=== PATIENT | female | born 2000 | race Caucasian/White ===

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

== ENCOUNTER 2022-11-07 09:47 | Emergency (ER) | payer MEDICAID, SELFPAY ==
[2022-11-07 09:48] VITALS: BP 122/82; PULSE 85; RESP 18; O2SAT 100
--- NOTE | 2022-11-07 10:05 | W.ED.WOUNDLC ---
HPI - Wound/Laceration General: Chief Complaint: Wound/Laceration Stated Complaint: LEFT WRIST LACERATION Time Seen by Provider: 11/07/22 09:48 Source: patient Mode of arrival: ambulatory Limitations: no limitations History of Present Illness: 22-year-old female states that she was making stuff for Mother's Day dropped a knife and went to catch it and it stabbed her in her left wrist she does have a laceration roughly 3 cm to the left wrist no bleeding at this time she rates her pain a 3 out of 10 she has full range of motion of her right hand no weakness in her supervisor burling and joining. Denies any other injuries. Associated symptoms: Denies chills, fever(s), nausea or vomiting Review of Systems Const: Denies: fever(s), chills, body aches or change in appetite ENMT: Denies: throat pain or dental pain Card: Denies: chest pain Resp: Denies: dyspnea GI: Denies: abdominal pain, nausea, vomiting or diarrhea Musc: Denies: neck pain or back pain Skin/Breast: Denies: rash Neuro: Denies: headache(s) PFSH ED PFSH: Medical History Encounter for surveillance of Nexplanon subdermal contraceptive Family History Grandmother Hypertension paternal Heart disease paternal Social History Smoking and tobacco status: current every day smoker cigarettes Alcohol intake: never Substance/Drug Use: never Physical Exam Const: COMMON NORMALS: no acute distress and patient oriented x3 HENMT: COMMON NORMALS: normocephalic HEAD & SCALP: normocephalic Eye: COMMON NORMALS: conjunctivae normal CONJUNCTIVA: Yes conjunctivae normal Neck/C-Spine: COMMON NORMALS: supple Chest: COMMONS NORMALS: normal inspection of the chest Resp: COMMON NORMALS: normal respiratory effort Cardio: COMMON NORMALS: regular rate RATE: regular rate GI: COMMON NORMALS: Normal to inspection, nondistended, normoactive bowel sounds present Extremity: NARRATIVE EXTREMITY EXAM: 3 cm laceration to left wrist no tendon involvement no bleeding at this time distal pulses sensation intact she has full range of motion of her digits Neuro: COMMON NORMALS: patient oriented x3 Psych: COMMON NORMALS: mental status grossly normal Skin: COMMON NORMALS: no rashes or lesions noted GENERAL SKIN EXAM: no rashes or lesions noted Procedures Laceration Laceration 1: Site: upper extremity Side (If applicable): left Size (cm): 3 Description: linear Depth: simple, single layer Local Anesthetic: lidocaine 1% Amount of anesthesia used (mL): 8 Pre-repair: wound explored and irrigated extensively Skin layer closed with: nylon Size (cm): 5-0 Number of sutures: 4 Technique: simple, interrupted Course Vital Signs: Vital signs: Vital Signs Pulse Rate 85 11/07/22 09:48 Respiratory Rate 18 11/07/22 09:48 Blood Pressure 122/82 11/07/22 09:48 Pulse Oximetry 100 11/07/22 09:48 Oxygen Delivery Me thod Room Air 11/07/22 09:48 MDM - Wound/Laceration Medical Decision Making Patient presents with a laceration to her left wrist she has no signs of any tendon or nerve involvement. She has no bleeding at this time no sign of arterial injury I did repair the laceration with sutures she is to return in 10 to 14 days for removal Discharge Plan Discharge Patient Disposition: Home Clinical Impression: Laceration Condition: Stable Prescriptions: No Action norgestimate-ethinyl estradiol [Sprintec (28)] 0.25-35 mg-mcg tablet 1 tab PO DAILY Qty: 28 3RF Prilosec OTC 20 mg tablet,delayed release (DR/EC) 20 mg PO DAILY PRN acetaminophen 325 mg Tablet 650 mg PO Q6H PRN (Reason: Mild pain or temp > 100.4) Qty: 60 0RF Discharge Orders: Discharge ED (Routine); Ordered 11/07/22 Ordered By: Rey Dc Discharge Diet: Advance as tolerated Discharge Activity: Resume usual activity Patient Instructions: Care For Your Stitches (ED) Activity Restrictions/Additional Instructions: suture removal in 10-14 days Coding Level of Care Code ED Microarray Specialist for Rei Poole
[2022-11-07] MEDS: tetanus-dipt-pertussis 0.5 mL SDV IM (10:07)
--- NOTE | 2022-11-14 13:56 | DCPLANNER ---
slot operations manager called patient due to no primary care physician - no answer at this time.
== END 2022-11-07 10:32 | disposition home or self-care (01) ==
PROVIDERS: Emergency Provider Emergency Medicine
DX: S61.512A Laceration without foreign body of left wrist, initial encounter (principal); W26.0XXA Contact with knife, initial encounter; F17.210 Nicotine dependence, cigarettes, uncomplicated; Z23 Encounter for immunization
CPT/HCPCS: 12002; 90471; 90715; 99282

== ENCOUNTER 2023-09-28 10:13 | Emergency (ER) | payer MEDICAID, SELFPAY ==
[2023-09-28 10:35] VITALS: BP 129/69; PULSE 70; RESP 18; TEMP 36.6; O2SAT 100; BMI 25.6
--- NOTE | 2023-09-28 10:42 | ED_ITS ---
HPI - Abdominal Pain 2 General: Chief Complaint: Abdominal Pain Stated Complaint: abd pain Time Seen by Provider: 09/28/23 10:36 Source: patient Mode of arrival: ambulatory Limitations: no limitations History of Present Illness: 23-year-old female states she been havin g some lower abdominal cramping over the last month. She states her main concern she thinks she may be she had a faint positive on Tuesday. States just cramping pain she rates pain a 1 out of 10 she had no fevers denies any vaginal bleeding. Associated Symptoms: Denies chills, diarrhea, fever(s), nausea and vomiting Review of Systems 2 Const: Denies: fever(s), chills, body aches or change in appetite ENMT: Denies: throat pain or dental pain Card: Denies: chest pain Resp: Denies: dyspnea GI: Reports: abdominal pain; Denies: nausea, vomiting or diarrhea Musc: Denies: neck pain or back pain Skin/Breast: Denies: rash Neuro: Denies: headache(s) PFSH ED 2 PFSH: Medical History Psychiatric care Encounter for surveillance of Nexplanon subdermal contraceptive Family History Grandmother Hypertension paternal Heart disease paternal Physical Exam 2 Const: COMMON NORMALS: no acute distress, patient oriented x3 and healthy appearing HENMT: COMMON NORMALS: normocephalic and atraumatic HEAD & SCALP: n ormocephalic and atraumatic Neck/C-Spine: COMMON NORMALS: full ROM and supple Chest: COMMONS NORMALS: normal inspection of the chest and normal palpation of entire chest wall Resp: COMMON NORMALS: normal respiratory effort, No retractions, No use of accessory muscles and clear to auscultation bilaterally AUSCULTATION: clear to auscultation bilaterally Cardio: COMMON NORMALS: regular rate, regular rhythm and No murmurs present (Cardio) RATE: regular rate RHYTHM: regular rhythm GI: COMMON NORMALS: Normal to inspection, nondistended, normoactive bowel sounds present, Soft to palpation, non-tender and no masses PALPATION: Yes Soft to palpation Extremity: COMMON NORMALS: normal to inspection and full ROM Neuro: COMMON NORMALS: patient oriented x3, moves all extremities and no focal motor deficits Psych: COMMON NORMALS: mental status grossly normal, Normal thought process present and cooperative THOUGHT PROCESS: Normal thought process present Skin: COMMON NORMALS: no rashes or lesions noted and no wounds GENERAL SKIN EXAM: no rashes or lesions noted Course 2 Vital Signs: Vital signs: Vital Signs Temperature 97.9 F 09/28/23 10:35 Pulse Rate 70 09/28/23 10:35 Respiratory Rate 18 09/28/23 10:35 Blood Pressure 129/69 09/28/23 10:35 Pulse Oximetry 100 09/28/23 10:35 Oxygen Delivery Me thod Room Air 09/28/23 10:35 MDM - Abdominal Pain Medical Decision Making Presents for some abdominal cramping likely from her early she has no severe pain exam is benign no signs of ectopic or appendicitis her quantitative level here is only 116 she is likely very early to early to perform an ultrasound she is to follow-up with OB return if worsening she understands agrees to plan Medical Records I reviewed the patient's medical records. Lab Data I reviewed the patient's lab results. 09/28/23 10:37 09/28/23 10:37 Labs/Radiology: Laboratory Results WBC 8.45 10^3/uL (3.29-11.43) 09/28/23 10:37 RBC 4.40 10^6/uL (3.85-5.65) 09/28/23 10:37 Hgb 13.20 g/dL (11.27-16.99) 09/28/23 10:37 Hct 40.5 % (36-47) 09/28/23 10:37 MCV 92.0 fl (85-98) 09/28/23 10:37 MCH 30.0 pg (27-33) 09/28/23 10:37 MCHC 32.6 g/dL (30-55) 09/28/23 10:37 RDW 12.5 % (12.1-15.1) 09/28/23 10:37 Plt Count 256 10^3/cmm (157-399) 09/28/23 10:37 MPV 10.4 fL (7.4-10.4) 09/28/23 10:37 Neut % (Auto) 65.7 % 09/28/23 10:37 Lymph % (Auto) 26.3 % 09/28/23 10:37 [place] % (Auto) 5.4 % 09/28/23 10:37 Eos % (Auto) 1.4 % 09/28/23 10:37 Baso % (Auto) 0.7 % 09/28/23 10:37 Neut # (Auto) 5.55 10^3/uL (1.8-7.7) 09/28/23 10:37 Lymph # (Auto) 2.2 10^3/uL (0.8-4.8) 09/28/23 10:37 [place] # (Auto) 0.5 10^3/uL (0.2-0.9) 09/28/23 10:37 Eos # (Auto) 0.1 10^3/uL (0.0-0.8) 09/28/23 10:37 Baso # (Auto) 0.1 10^3/uL (0.0-0.1) 09/28/23 10:37 Nucleated RBC % (auto) 0 % 09/28/23 10:37 Nucleated RBCs # 0.0 /100WBC 09/28/23 10:37 Sodium 138 mmol/L (136-145) 09/28/23 10:37 Potassium 4.1 mmol/L (3.5-5.1) 09/28/23 10:37 Chloride 105 mmol/L (98-107) 09/28/23 10:37 Carbon Dioxide 24 mmol/L (22-29) 09/28/23 10:37 Anion Gap 13.1 (5-19) 09/28/23 10:37 BUN 7 mg/dL (6-20) 09/28/23 10:37 Creatinine 0.6 mg/dL (0.5-0.9) 09/28/23 10:37 GFR Calculation 126.2 mL/min (90-130) 09/28/23 10:37 Glucose 97 mg/dL (65-115) 09/28/23 10:37 Calculated Osmolality 284 mOsm/kg (285-295) L 09/28/23 10:37 Calcium 9.3 mg/dL (8.5-10.5) 09/28/23 10:37 Total Bilirubin 0.3 mg/dL (0.15-1.2) 09/28/23 10:37 AST 15 U/L (0-32) 09/28/23 10:37 ALT 11 U/L (0-33) 09/28/23 10:37 Alkaline Phosphatase 46 U/L (35-105) 09/28/23 10:37 Total Protein 6.8 g/dL (6.6-8.7) 09/28/23 10:37 Albumin 4.2 g/dL (3.5-5.2) 09/28/23 10:37 Globulin 2.6 g/dL (1.3-4.6) 09/28/23 10:37 Lipase 15 U/L (13-60) 09/28/23 10:37 HCG, Qual Positive (Negative) H 09/28/23 10:37 Ser , Semi-Qnt 116.40 mIU/mL 09/28/23 10:37 Urine Color Yellow (Yellow) 09/28/23 10:57 Urine Appearance Clear (CLEAR) 09/28/23 10:57 Urine pH 7 (5-7) 09/28/23 10:57 Ur Specific [place] 1.000 (1.005-1.030) L 09/28/23 10:57 Urine Protein Neg (Negative) 09/28/23 10:57 Urine Glucose (UA) Norm (Normal) 09/28/23 10:57 Urine Ketones Negative (Negative) 09/28/23 10:57 Urine Blood Neg (Negative) 09/28/23 10:57 Urine Nitrate Negative (Negative) 09/28/23 10:57 Urine Bilirubin Neg (Negative) 09/28/23 10:57 Urine Urobilinogen Norm mg/dL (Negative) 09/28/23 10:57 Ur Leukocyte Esterase Negative (Negative) 09/28/23 10:57 No radiology studies performed this visit Discharge Plan Discharge Patient Disposition: Home Clinical Impression: Abdominal pain affecting Condition: Stable Prescriptions: No Action Prilosec OTC 20 mg tablet,delayed release (DR/EC) 20 mg PO DAILY PRN (Reason: Heartburn) Discharge Orders: Discharge ED (Routine); Ordered 09/28/23 Ordered By: Rey Dc Discharge Diet: Advance as tolerated Discharge Activity: Resume usual activity Patient Instructions: (ED), Abdominal Pain (ED) Stand Alone Forms: Work/School Release Coding Level of Care Code ED Photography Editor for Jasong Zulema
[2023-09-28 10:45] LABS: Basophils # 0.1 10^3/uL (0.0-0.1); Basophils % 0.7 %; Eosinophils # 0.1 10^3/uL (0.0-0.8); Eosinophils % 1.4 %; Hematocrit 40.5 % (36-47); Lymphocytes # 2.2 10^3/uL (0.8-4.8); Lymphocytes % 26.3 %; Mean Corpuscular HGB Conc 32.6 g/dL (30-55); Mean Platelet Volume 10.4 fL (7.4-10.4); Monocytes # 0.5 10^3/uL (0.2-0.9); Monocytes % 5.4 %; Neutrophils # 5.55 10^3/uL (1.8-7.7); Neutrophils % 65.7 %; Nucleated Red Blood Cells % 0 %; Platelet Count 256 10^3/cmm (157-399); Red Cell Distribution Width 12.5 % (12.1-15.1); White Blood Count 8.45 10^3/uL (3.29-11.43)
--- NOTE | 2023-09-28 10:51 | PC.PHAR ---
pt states she takes no prescription medications-pt states not taken sprintec or prozac 40mg daily in over a year ext shows prozac 40mg last filled 04/05/23 30d/s-pt states only takes prilosec otc prn
[2023-09-28 11:04] LABS: HCG, Serum Qual Positive (Negative)
[2023-09-28 11:05] LABS: Add Urine Microscopic? NO; Charge for UA Resulting for Rev
[2023-09-28 11:10] LABS: Bilirubin Urine Neg (Negative); Blood Urine Neg (Negative); Glucose Urine UA Norm (Normal); Ketones Urine Negative (Negative); Leukocyte Esterase Urine Negative (Negative); Nitrate Urine Negative (Negative); Protein Urine Neg (Negative); Urine Appearance Clear (CLEAR); Urine Color Yellow (Yellow); Urobilinogen Urine Norm (Negative); pH Urine 7 (5-7)
[2023-09-28 11:10] LABS: Alanine Aminotransferase 11 U/L (0-33); Albumin Level 4.2 g/dL (3.5-5.2); Alkaline Phosphatase 46 U/L (35-105); Anion Gap 13.1 (5-19); Aspartate Amino Transferase 15 U/L (0-32); Blood Urea Nitrogen 7 mg/dL (6-20); Calcium 9.3 mg/dL (8.5-10.5); Carbon Dioxide 24 mmol/L (22-29); Chloride 105 mmol/L (98-107); Creatinine Clr Calc Pharmacy 129.8588; Globulin 2.6 g/dL (1.3-4.6); Glomerular Filtration Rate 126.2 mL/min (90-130); Glucose 97 mg/dL (65-115); Lipase 15 U/L (13-60); Osmolality Calculated 284 mOsm/kg (285-295); Potassium 4.1 mmol/L (3.5-5.1); Sodium 138 mmol/L (136-145); Total Bilirubin 0.3 mg/dL (0.15-1.2); Total Protein 6.8 g/dL (6.6-8.7)
--- NOTE | 2023-09-28 11:59 | DCPLANNER ---
Message sent to [facility] for Follow up
== END 2023-09-28 11:31 | disposition home or self-care (01) ==
PROVIDERS: Emergency Provider Emergency Medicine
DX: O26.899 Other specified pregnancy related conditions, unspecified trimester (principal); R10.30 Lower abdominal pain, unspecified; Z3A.00 Weeks of gestation of pregnancy not specified
CPT/HCPCS: 36415; 80053; 81003; 83690; 84702; 84703; 85025; 99283

== ENCOUNTER → 2023-10-31 07:57 | Outpatient (BNVA) | payer SELFPAY | PROVIDERS: Visit Provider Nurse Practitioner Women's Health | DX: N92.6 Irregular menstruation, unspecified (principal) | CPT/HCPCS: 81025; 84702; 85025; 86850; 86900 ==

== ENCOUNTER → 2024-09-03 10:53 | Outpatient (BNVA) | payer MEDICAID, SELFPAY | PROVIDERS: Visit Provider Nurse Practitioner | DX: S93.401A Sprain of unspecified ligament of right ankle, initial encounter (principal); X58.XXXA Exposure to other specified factors, initial encounter | CPT/HCPCS: 73610 ==

== ENCOUNTER → 2025-03-27 10:28 | Outpatient (BNVA) | payer MEDICAID, SELFPAY | PROVIDERS: Visit Provider Psychiatry & Neurology Psychiatry | DX: F33.1 Major depressive disorder, recurrent, moderate (principal); F10.20 Alcohol dependence, uncomplicated | CPT/HCPCS: 80061; 83036 ==

== ENCOUNTER → 2025-06-12 11:05 | Outpatient (BNVA) | payer MEDICAID, SELFPAY ==
[2025-04-01 10:50] VITALS: BP 111/52; BMI 29.8
== END ==
PROVIDERS: Visit Provider Nurse Practitioner Women's Health
DX: Z34.90 Encounter for supervision of normal pregnancy, unspecified, unspecified trimester (principal)
CPT/HCPCS: 81025; 84702; 86850; 86900